=== PATIENT | male | born 1955 | race African-American/Black ===

== ENCOUNTER → 2017-11-23 | Outpatient (CLI) | payer BC | LOC: CAT 07:54 | DX: K76.0 Fatty (change of) liver, not elsewhere classified (principal); I25.10 Atherosclerotic heart disease of native coronary artery without angina pectoris; M47.816 Spondylosis without myelopathy or radiculopathy, lumbar region; Z87.09 Personal history of other diseases of the respiratory system ==

== ENCOUNTER → 2018-02-04 | Outpatient (CLI) | payer BC ==
--- NOTE | ~2018-02-04 | 2DMMODE ---
[facility] [place] [address] 2 D/M-MODE ECHOCARDIOGRAM Name: SAL PARISH [facility] [id number] Admission: 02/04/18 Attend Phys: Cameron Fish MD Discharge: Date of : 59 Date of Service: 02/04/18 1541 Report #: [id number] THIS REPORT FOR: //name// ADDENDUM APPROVED REPORT Study performed: 02/04/2018 13:18:05 EXAM: Comprehensive 2D, Doppler, and color-flow Echocardiogram Patient Location: Out-Patient Room #: ECHO 1 Status: routine BSA: 1.74 HR: 100 bpm BP: 152/96 mmHg Rhythm: NSR Other Information Study Quality: Good Risk Factors: Cardiac Risk Factors: HTN, Hyperlipidemia, FHX of CAD, Smoking Indications CAD Hypertension/HDD 2D Dimensions RVDd: 26.35 mm IVSd: 10.75 (7-11mm) LVOT Diam: 22.45 (18-24mm) LVDd: 42.15 mm PWd: 9.59 (7-11mm) Ascending Ao: 33.18 (22-36mm) LVDs: 30.21 (25-40mm) Aortic Root: 32.04 mm IVC: 12.00 mm Volumes Left Atrial Volume (Systole) Single Plane 4CH: 26.24 mL Single Plane 2CH: 27.12 mL LA ESV Index: 17.00 mL/m2 Aortic Valve AoV Peak Hernando.: 1.02 m/s AO Peak Gr.: 4.15 mmHg LVOT Max P.44 mmHg LVOT Max V: 1.05 m/s JAMES Vmax: 4.09 cm2 [facility] [place] [address] 2 D/M-MODE ECHOCARDIOGRAM Name: SAL PARISH Room #: [facility]#: [id number] Admission: 02/04/18 Attend Phys: Cameron Fish MD Discharge: Date of : 59 Date of Service: 02/04/18 1541 Report #: [id number] Mitral Valve E/A Ratio: 0.5 MV Decel. Time: 112.63 ms MV E Max Hernando.: 0.37 m/s MV A Hernando.: 0.81 m/s MV PHT: 32.66 ms IVRT: 83.04 ms Pulmonary Valve PV Peak Hernando.: 1.31 m/s PV Peak Gr.: 6.85 mmHg Pulmonary Vein P Vein S: 0.54 m/s P Vein A: 0.32 m/s P Vein D: 0.43 m/s P Vein A Dur.: 128.0 msec P Vein S/D Ratio: 1.26 Tricuspid Valve TR Peak Hernando.: 2.86 m/s RAP Estimate: 5.00 mmHg TR Peak Gr.: 32.66 mmHg PA Pressure: 37.66 mmHg Left Ventricle The left ventricle is normal size. There is normal left ventricular wall thickness. Left ventricular systolic function is mildly decreased. LVEF is 45%. Grade I - abnormal relaxation pattern. Right Ventricle The right ventricle is normal size. The right ventricular systolic function is normal. Atria The left atrium size is normal. The right atrium size is normal. Aortic Valve The aortic valve is normal in structure. No aortic regurgitation is present. There is no aortic valvular stenosis. Mitral Valve The mitral valve is normal in structure. There is no mitral valve regurgitation noted. No evidence of mitral valve stenosis. Tricuspid Valve The tricuspid valve is normal in structure. Mild tricuspid regurgitation. Estimated PAP 37.6 mmHg. There is mild pulmonary hypertension. [address] [address] 2 D/M-MODE ECHOCARDIOGRAM Name: SAL PARISH Alessia Room #: [facility]#: [id number] Admission: 02/04/18 Attend Phys: Cameron Fish MD Discharge: Date of : 59 Date of Service: 02/04/18 1541 Report #: [id number] Pulmonic Valve The pulmonary valve is normal in structure. There is no pulmonic valvular regurgitation. Great Vessels The aortic root is normal in size. The ascending aorta is normal in size. IVC is normal in size and collapses >50% with inspiration. Pericardium There is no pericardial effusion. <Conclusion> The left ventricle is normal size. The left ventricular systolic function is mildly decreased. Grade I - abnormal relaxation pattern. The right ventricle is normal size. The left atrium size is normal. The aortic valve is normal in structure. Mild tricuspid regurgitation. Estimated PAP 37.6 mmHg. <ELECTRONICALLY SIGNED> By: Cameron Fish MD 02/04/18 1541 [id number] Cameron Fish MD /INF
== END ==
LOC: CV 01-21 11:26
DX: I10 Essential (primary) hypertension (principal); I07.1 Rheumatic tricuspid insufficiency; I27.20 Pulmonary hypertension, unspecified; I25.10 Atherosclerotic heart disease of native coronary artery without angina pectoris; E78.5 Hyperlipidemia, unspecified

== ENCOUNTER 2018-07-15 10:48 | Emergency (ER) | payer BC ==
[~2018-07-15] VITALS: Ht 170.2 cm; Wt 61.2 kg
[2018-07-15 11:05] LABS: ABSOLUTE NEUTROPHILS 2.2 thou/uL (1.4-8.2); BASOPHILS 0.2 % (0.0-2.0); EOSINOPHILS 1.3 % (0.0-3.0); HEMATOCRIT 42.6 % (42.0-52.0); HEMOGLOBIN 14.4 gm/dL (14.0-18.0); LYMPHOCYTES 42.3 % (24.0-44.0); MCH 34.5 pg (26.0-34.0); MCHC 33.8 g/dL (28.0-37.0); MONOCYTES 11.3 % (1.0-8.0); POLYS 44.9 % (36.0-66.0); RBC 4.18 mil/uL (4.50-6.00); RDW 12.7 % (10.5-14.5); WBC 4.9 thou/uL (4.0-11.0)
[2018-07-15 11:07] LABS: ANION GAP 8 mmol/L (7-16); BUN 13 mg/dL (7-18); CALCIUM 9.2 mg/dL (8.5-10.1); CHLORIDE 103 mmol/L (98-107); CO2 27 mmol/L (21-32); GLUCOSE 95 mg/dL (74-106); POTASSIUM 5.8 mmol/L (3.5-5.1); SODIUM 138 mmol/L (136-145)
[2018-07-15 11:29] LABS: SGOT 39 U/L (15-37); SGPT 22 U/L (30-65); TOTAL BILIRUBIN 0.7 mg/dL (<0.1-1.0); TOTAL PROTEIN 7.1 g/dL (6.4-8.2)
[2018-07-15 11:30] LABS: PLATELET COUNT 80 thou/uL (150-400); PLATELET ESTIMATE SLIGHTLY DECREASED
[2018-07-15 11:45] LABS: TROPONIN-I <0.06 ng/mL (<0.06)
[2018-07-15] MEDS ORDERED: LIPITOR10 MG PO (11:54)
[2018-07-15] MEDS ORDERED: LISINOPRIL5 MG PO (11:55)
[2018-07-15] MEDS ORDERED: SPIRIVA INH (11:55)
[2018-07-15] MEDS ORDERED: MEDI-MECLIZINE25 MG PO (12:40)
[2018-07-15 12:49] VITALS: BP 126/71
--- NOTE | 2018-07-16 07:57 | EKG ---
[address] [address] ELECTROCARDIOGRAM REPORT Name: SAL PARISH [id number] ������������������ Admission: 07/15/18 ������������������ Attend Phys: Discharge: 07/15/18 ������������������ Date of : 59 Report #: [id number] ����������������������������������������������������������������� [id number] THIS REPORT FOR: //name// [facility] ED Test Date: 2018-07-15 Test Time: 10:52:04 Pat Name: SAL PARISH Department: Room: Gender: M [employer]er: GLENN : 1955 Requested By: Jhon Queen Order Number: [id number] MD: Luca Ariza Measurements Intervals [place] Rate: 72 P: 63 SC: 146 QRS: 101 QRSD: 137 T: -66 QT: 446 QTc: 489 Interpretive Statements Sinus rhythm LBBB Consider left ventricular hypertrophy Nonspecific T abnormalities, inferior leads No previous ECG available for comparison Electronically Signed On 07-16-2018 7:57:10 CDT by Luca Ariza [email or web address] ��������������������������������������������� <ELECTRONICALLY SIGNED> ���������������������������������������� By: Luca Ariza MD ��������������������������������������������� 07/16/18 0757 [id number] Luca Ariza MD /REED
== END 2018-07-15 12:52 | disposition home or self-care (01) ==
LOC: ER 10:48
PROVIDERS: Emergency Medicine
DX: R42 Dizziness and giddiness (principal); R53.1 Weakness; I25.2 Old myocardial infarction; I25.10 Atherosclerotic heart disease of native coronary artery without angina pectoris; J44.9 Chronic obstructive pulmonary disease, unspecified; F17.210 Nicotine dependence, cigarettes, uncomplicated

== ENCOUNTER → 2018-08-05 | Outpatient (CLI) | payer BC ==
[~2018-08-05] MED LIST: LIPITOR10 MG PO; LISINOPRIL5 MG PO; MEDI-MECLIZINE25 MG PO; SPIRIVA INH
== END ==
LOC: NUC 12:17
DX: I42.9 Cardiomyopathy, unspecified (principal); D86.9 Sarcoidosis, unspecified; E78.5 Hyperlipidemia, unspecified; I10 Essential (primary) hypertension; Z79.899 Other long term (current) drug therapy